=== PATIENT | male | born 1995 | race African-American/Black ===

== ENCOUNTER 2021-02-11 08:21 | Emergency (ER) | payer BC, SELFPAY ==
--- NOTE | ~2021-02-11 | XR_ITS ---
EXAMINATION: XR scapula RT DATE: 02/11/2021 10:26 INDICATION: Right scapula pain. TECHNIQUE: 2 views of right scapula were obtained. COMPARISON: None. FINDINGS: Bone alignment is normal. No fracture. Glenohumeral joint is normal. There is mild acromioc lavicular joint osteoarthritis. IMPRESSION: 1. Mild right acromioclavicular joint osteoarthritis. Reviewed, dictated and finalized at location B.
--- NOTE | ~2021-02-11 | XR_ITS ---
EXAMINATION: XR thoracic spine 3V DATE: 02/11/2021 10:26 INDICATION: Back pain. TECHNIQUE: 3 views of thoracic spine were obtained. COMPARISON: None. FINDINGS: There is 8 degrees dextrocurvature of thoracic spine. There is mild anterior wedging of T11 vertebral body, likely physiologic. Intervertebral disc heights are normal. IMPRESSION: 1. No specific etiology for the patient's symptoms. Reviewed, dictated and finalized at location B.
[2021-02-11 08:26] VITALS: BP 116/73; PULSE 67; RESP 15; TEMP 36.6; O2SAT 100
--- NOTE | 2021-02-11 09:01 | ED.BACK ---
HPI - Back Pain/Injury General Chief Complaint: Back Pain/Injury Stated Complaint: back pain Time Seen by Provider: 02/11/21 08:58 Source: patient Mode of arrival: ambulatory Limitations: no limitations History of Present Illness HPI Narrative: Patient is a 25 yo male who presents for evaluation of right back pain which began overnight. Pt was sitting watching television when the pain began. He has a history of back spasm per patient. Patient reports the pain is sharp in nature. He does report a job with heavy lifting daily; also states he carries a heavy back. Pt with pain such as this in the past that was diagnosed as muscle strain. Pain is exacerbated with movement of the right shoulder or bending. No lower back pain. Denies fever, chills or cough. He denies chest pain. No pleuritic pain. No frontal abdominal pain. No dysuria or hematuria. Related Data Allergies Allergy/AdvReac Type Severity Reaction Status Date / Time No Known Allergies Allergy Verified 02/11/21 08:28 Review of Systems Review of Systems: CONSTITUTIONAL: Denies fever, chills, or sweats. EYES: Denies visual changes, redness, or discharge. ENT: Denies rhinorrhea, congestion, sore throat, or otalgia. CARDIOVASCULAR: Denies chest pain, palpitations, or edema. RESPIRATORY: Denies cough or dyspnea. GASTROINTESTINAL: Denies abdominal pain, nausea, vomiting, or diarrhea. GENITOURINARY: Denies dysuria or hematuria. SKIN: Denies rash or itching. MUSCULOSKELETAL:Reports pain near to right shoulder blade NEUROLOGIC: Denies headache, numbness, or weakness. [facility] Social History Social History (Updated 02/11/21 @ 09:22 by Anya Sibley MD) Smoking status: Never smoker Alcohol intake: never Substance use: never Gender identity (if verbalized by the patient): Male Exam Narrative: GENERAL: Awake, alert, conversant HEAD: Normocephalic, atraumatic. EYES: PERRLA and EOMI. ENT: Nares clear, no rhinorrhea or epistaxis. Mucous membranes moist. NECK: Supple. CHEST: No respiratory distress, breathing even and non labored HEART: Regular rate, sinus rhythm ABDOMEN:Non distended, non tender Thorax: Right midthoracic back pain, tender to palpation at the medial border of the right scapula which reproduces pain, no mass no midline pain EXTREMITIES: Normal range of motion. No edema. Intact sensation over the deltoid. No squaring off of the shoulder. Pain with flexion of the right shoulder which reproduces pain. No crepitus. No erythema. Radial pulse 2+. Intact sensation median, ulnar, radial nerve distribution. SKIN: Warm, dry, no rash. NEURO:No focal deficits. Alert and oriented x3 Course Vital Signs Vital signs: Vital Signs Temperature 36.6 C 02/11/21 08:26 Pulse Rate 67 02/11/21 08:26 Respiratory Rate 15 02/11/21 08:26 Blood Pressure 116/73 02/11/21 08:26 Pulse Oximetry 100 02/11/21 08:26 Temperature 36.6 C 02/11/21 08:26 Pulse Rate 67 02/11/21 08:26 Respiratory Rate 15 02/11/21 08:26 Blood Pressure 116/73 02/11/21 08:26 Pulse Oximetry 100 02/11/21 08:26 MDM - Back Pain/Injury MDM Narrative Medical decision making narrative: Patient presenting for evaluation of right back pain. At the time of assessment, ABCs are intact and vital signs are stable. On exam, pain is reproducible in the mid thoracic posterior back, medial to the scapula. There is no bruising or mass. No deformity. Patient with intact range of motion although movement does exacerbate the pain. No midline thoracic pain. Imaging shows evidence of osteoarthritis, wedging at T11 which may be causing a type of radiculopathic pain given the patient's symptoms. No ripping or tearing sensation to the flank. No chest pain or shortness of breath. Based on the patient's symptoms and physical exam finding, most consistent musculoskeletal etiology and thoracic strain. Patient was advised to discontinue heavy lifting, take anti-inflammatories until
[2021-02-11] MEDS: KETOROLAC (*BKC) 60 MG/2 ML VIAL 30 MG IM (09:34)
--- NOTE | 2021-02-11 10:14 | PC.NURSE ---
Pt to xray.
== END 2021-02-11 11:06 | disposition home or self-care (01) ==
PROVIDERS: Emergency Provider Emergency Medicine
DX: S29.019A Strain of muscle and tendon of unspecified wall of thorax, initial encounter (principal); M19.011 Primary osteoarthritis, right shoulder; X50.9XXA Other and unspecified overexertion or strenuous movements or postures, initial encounter
CPT/HCPCS: 72072; 73010; 96372; 99283; J1885

== ENCOUNTER 2022-12-29 18:31 | Emergency (ER) | payer SELFPAY ==
--- NOTE | 2022-12-29 18:44 | ED.HA ---
HPI - Headache General Chief Complaint: Headache Stated Complaint: Headache Time Seen by Provider: 12/29/22 18:45 Source: patient Mode of arrival: ambulatory Limitations: no limitations History of Present Illness HPI Narrative: 27-year-old male presents today with complaint of migraine. Reports that he also is having photophobia today. Took Excedrin this morning with no relief of pain. Patient reports that he was diagnosed with migraines in 2018 by his primary care physician. States that his migraines at that time were diagnosed as asthma induced migraines . Patient states that he does not get them often but when he does get a migraine Excedrin helps treat the pain. He reports that he has been giving more frequent migraines over the past 2 weeks since flying on a plane. He currently does not have a primary care physician because he feels that he does not need 1 because he never gets sick . Patient is alert an oriented. No neuro deficits. Denies nausea vomiting. All systems reviewed and negative except as noted above. Related Data Home Medications Medication Instructions Recorded Confirmed albuterol 12/29/22 Allergies Allergy/AdvReac Type Severity Reaction Status Date / Time No Known Allergies Allergy Verified 12/29/22 18:32 Review of Systems Review of Systems: CONSTITUTIONAL: Denies fever, chills, or sweats. EYES: Denies visual changes, redness, or discharge. ENT: Denies rhinorrhea, congestion, sore throat, or otalgia. CARDIOVASCULAR: Denies chest pain, palpitations, or edema. RESPIRATORY: Denies cough or dyspnea. GASTROINTESTINAL: Denies abdominal pain, nausea, vomiting, or diarrhea. GENITOURINARY: Denies dysuria or hematuria. SKIN: Denies rash or itching. MUSCULOSKELETAL: Denies back pain, joint pain, or myalgia. NEUROLOGIC: Denies numbness, or weakness. Reports migraine headache. PSYCHIATRIC: Denies anxiety or depression. All other systems reviewed are negative, except as documented in HPI. [facility] Social History Social History (Updated 02/11/21 @ 09:22 by Anya Sibley MD) Smoking status: Never smoker Alcohol intake: never Substance use: never Gender identity (if verbalized by the patient): Male Comments At time of signature, agree with nursing past medical, surgical, social and family history. There is no relevant family history pertinent to the presenting complaint. Exam Narrative: GENERAL: This is a well-nourished, well-developed patient, in no apparent distress. HEAD: normocephalic, atraumatic. EYES: PERRL. Sclera clear/white. Vision is grossly intact. Extraocular motions intact. EARS: External ears normal, auditory canals clear and without drainage, TMs normal without perforation. Hearing grossly intact. NOSE: External nose normal with no obvious nasal discharge, nares without redness, no rhinorrhea. THROAT: Mucous membranes moist, posterior pharynx clear. NECK: Neck supple, non-tender without lymphadenopathy, masses or thyromegaly. CARDIOVASCULAR: Regular rate and rhythm without murmurs, gallops, or rubs. RESPIRATORY: Clear to auscultation. Breath sounds equal bilaterally. No wheezes, rales, or rhonchi. SKIN: warm, Dry, intact with no suspicious lesions or rash, good texture and turgor. NEURO: awake, alert, and oriented to person, place and time. There were no obvious focal neurologic abnormalities. EXTREMITIES: No joint tenderness, effusion, or edema noted. Course Course Level of Care: Express Care Visit Vital Signs Vital signs: reviewed MDM - Headache MDM Narrative Medical decision making narrative: Patient is aware of diagnosis, understands and agrees to treatment plan. Anticipatory guidance given. Patient agrees to follow-up as directed and is aware of reasons to seek care at the emergency department. Portions of this record may have been created with voice recognition software Discharge Plan Discharge Clinical Impression: Migraine
[2022-12-29] MEDS: ONDANSETRON HCL ODT 4 MG TABLET SUBLINGUAL (19:00)
[2022-12-29] MEDS: diphenhydrAMINE HCl CAP 25 MG CAPSULE 50 MG PO (19:00)
[2022-12-29] MEDS: KETOROLAC (*BKC) 60 MG/2 ML VIAL IM (19:02)
== END 2022-12-29 19:30 | disposition home or self-care (01) ==
PROVIDERS: Emergency Provider Nurse Practitioner Family
DX: G43.909 Migraine, unspecified, not intractable, without status migrainosus (principal); J45.909 Unspecified asthma, uncomplicated
CPT/HCPCS: 96372; 99213; A9270; G0463; J1885

== ENCOUNTER 2024-09-11 12:16 | Emergency (ER) | payer OTHER, SELFPAY ==
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
--- NOTE | ~2024-09-11 | XR_ITS ---
CHEST RADIOGRAPH, PA AND LATERAL CLINICAL HISTORY: upper back pain, pleuritic pain . COMPARISON: None available TECHNIQUE: PA and lateral views of the chest. FINDINGS The cardiomediastinal silhouette is unremarkable. The lungs are clear. Visualized osseous structures and soft tissues are unremarkable. IMPRESSION: No focal infiltrate or effusion. Reviewed, dictated and finalized at location A.
[2024-09-11 12:36] VITALS: BP 149/100; PULSE 66; RESP 16; TEMP 36.3; O2SAT 100
--- OUTSIDE RECORDS SUMMARY | 2024-09-11 13:45 | XMS_ITS | Continuity of Care Document ---
Author Name [facility] Organization [facility] Care Team Providers Care Shellac Polisher Name Role Phone [facility] Unavailable Unavailable Problems Combined list of problems from Department of Defense and Veterans Affairs facilities. It does not include entries that were removed or entered in error. Problem Status Onset Date Problem Type Date of Resolution Comme nts Source Asthma Active Condition [facility] [place] [facility] Immunizations Combined list of available immunizations from the Department of Defense and Veterans Affairs facilities. Immunization Series Date Given Administered By Site Reaction Lot Number CVX Code Drug Insole Tape Stitcher Uco Status Comments Source COVID Vaccine Moderna 2020 [id number] complet ed COVID Vaccine Moderna 06/16/21 Given Ambulat ory Pharmac y COVID Vaccine Moderna 2020 [id number] complet ed COVID Vaccine Moderna 05/19/21 Given Ambulat ory Pharmac y Influenza, inj, MDCK, quadrivalent- pf 2020 [id number] Seqirus complet ed Influenza , inj, MDCK, quadrival ent-pf 03/17/21 Given Ambulat ory Pharmac y anthrax vaccine 2019 [id number] Emergent Biosolutions complet ed anthrax vaccine 08/08/19 Given Ambulat ory Pharmac y yellow fever vaccine 2019 [id number] 37 sanofi pasteur complet ed yellow fever vaccine 07/02/19 Given Ambulat ory Pharmac y influenza, injectable, quadrivalent 2018 [id number] Seqirus complet ed influenza , injectabl e, quadrival ent 05/28/19 Given Ambulat ory Pharmac y typhoid Vi capsular polysaccharid e vac 2018 [id number] sanofi pasteur complet ed typhoid Vi capsular polysacch aride vac 02/18/19 Given Ambulat ory Pharmac y anthrax vaccine 2018 [id number] [employer]gent [employer] complet ed anthrax vaccine 02/18/19 Given Ambulat ory Pharmac y vaccinia (smallpox) vaccine 2018 [id number] Sanofi Pasteur Inc[employer] complet ed vaccinia (smallpox ) vaccine 02/18/19 Given Ambulat ory Pharmac y anthrax vaccine 2018 [id number] Emer[employer] complet ed anthrax vaccine 08/09/18 Given Ambulat ory Pharmac y influenza, injectable, quadrivalent- pf [id number] GlaxoSmithKli ne complet ed influenza , injectabl e, quadrival ent-pf 06/05/18 Given Ambulat ory Pharmac y hepatitis B adult vaccine 2016 zzRig Arm [id number] 43 GlaxoSmithKli ne complet ed hepatitis B adult vaccine 05/10/17 Given Ambulat ory Pharmac y influenza, injectable, quadrivalent- pf 2016 [id number] Seqirus complet ed influenza , injectabl e, quadrival ent-pf 03/29/17 Given Ambulat ory Pharmac y typhoid Vi capsular polysaccharid e vac [address] [id number] sanofi pasteur complet ed typhoid Vi capsular polysacch aride vac 01/03/17 Given Ambulat ory Pharmac y typhoid Vi capsular polysaccharid e vac 2016 [id number] sanofi pasteur complet ed typhoid Vi capsular polysacch aride vac 01/02/17 Given Ambulat ory Pharmac y hepatitis B adult vaccine 2016 [id number] GlaxoSmithKli ne complet ed hepatitis B adult vaccine 12/06/16 Given Ambulat ory Pharmac y poliovirus vaccine, inactivated 2016 [id number] 10 sanofi pasteur complet ed polioviru s vaccine, inactivat ed 10/21/16 Given Ambulat ory Pharmac y tetanus, diphtheria, acellular pertu is 2016 [id number] GlaxoSmithKli ne complet ed tetanus, diphtheri a, acellular pertussis 10/21/16 Given Ambulat ory Pharmac y meningococcal A,C,Y,W-135 (MCV4P) 2016 [id number] 114 sanofi pasteur complet ed meningoco ccal A,C,Y,W-1 35 (MCV4P) 10/21/16 Given Ambulat ory Pharmac y adenovirus vaccine, live 2016 [id number] Teva Pharmaceutica ls complet ed adenoviru s vaccine, live 10/21/16 Given Ambulat ory Pharmac y hepatitis B pediatric/ado lescent 2016 [id number] GlaxoSmithKli ne complet ed hepatitis B pediatric /adolesce nt 10/21/16 Given Ambulat ory Pharmac y influenza, injectable, quadrivalent- pf 2016 [id number] 150 GlaxoSmithKli ne complet ed influenza , injectabl e, quadrival ent-pf 10/21/16 Given Ambulat ory Pharmac y Results Combined list of recent chemistry, hematology and other laboratory results from Department of Defense and Veterans Affairs, ranging from 15 months to all on record, depending upon the facility. Order Name Results Value Reference Range Date Interpretation Specimen Comments Source Chemistry CK Total 186 U/L 30 - 200 12/02 N [facility] Eosinophil % Auto 12.2 % 0.8 - 7.0 12/02 H [facility] Neutrophil % Auto 41.7 % 34.0 - 67.9 12/02 N [facility] Edgar Absolute 0.51 10^3/u L 0.30 - 0.96035 12/02 N [facility] Imm. Granulocyte % 0.1 % 0.0 - 1.5 12/02 N [facility] Imm. Granulocyte Absolute 0.0 10^3/u L 0.0 - 0.2103 12/02 N [facility] Baso Absolute 0.04 10^3/u L 0.01 - 0.07277 12/02 N [facility] Eos Absolute 0.88 10^3/u L 0.04 - 0.42626 12/02 H [facility] Neutro Absolute 3.01 10^3/u L 1.78 - 5.68038 12/02 N [facility] Basophil % Auto 0.6 % 0.2 - 1.2 12/02 N [facility] Lymph Absolute 2.76 10^3/u L 1.32 - 3.18630 12/02 N [facility] Monocyte % Auto 7.1 % 5.3 - 12.2 12/02 N [facility] Lymphocyte % Auto 38.3 % 21.8 - 53.1 12/02 N [facility] AST 18 U/L 5 - 34 12/02 N [facility] ALT 12.00 U/L 6.00 - 55.00 12/02 N [facility] Sodium 139.0 mmol/L 136.0 - 145.0 12/02 N [facility] Alk Phos 52 U/L 40 - 150 12/02 N [facility] Potassium Lvl 3.9 mmol/L 3.5 - 5.1 12/02 N [facility] Protein Total 8.3 g/dL 5.8 - 8.3 12/02 N [facility] Chloride 107 mmol/L 98 - 107 12/02 N [facility] Albumin 4.8 g/dL 3.5 - 4.8 12/02 N [facility] CO2 23 mmol/L 22 - 32 12/02 N [facility] Glucose Lvl 85 mg/dL 70 - 99 12/02 N [facility] BUN 13.0 mg/dL 8.9 - 20.6 12/02 N [facility] Creatinine Level 1.2 mg/dL 0.7 - 1.2 12/02 N [facility] Calcium 9.8 mg/dL 8.4 - 10.2 12/02 N [facility] Bilirubin Total 0.3 mg/dL 0.2 - 1.2 12/02 N [facility] Phosphorus 2.3 mg/dL 2.3 - 4.7 12/02 N [facility] WBC 7.21 10^3/u L 4.23 - 9.55324 12/02 N [facility] MPV 10.3 fL 9.4 - 12.4 12/02 N [facility] MCV 87.6 fL 79.0 - 92.2 12/02 N [facility] RBC 4.43 10^6/u L 4.63 - 6.44772 12/02 L [facility] Platelets 323 10^3/u L 163 - 189919 12/02 N [facility] Hematocrit 38.8 % 40.1 - 51.0 12/02 L [facility] MCHC 34.0 g/dL 32.3 - 36.5 12/02 N [facility] RDW CV 12.4 % 11.6 - 14.4 12/02 N [facility] MCH 29.8 pg 25.7 - 32.2 12/02 N [facility] Hemoglobin 13.2 g/dL 13.7 - 17.5 12/02 L [facility] Magnesium Lvl 2.05 mg/dL 1.70 - 2.60 12/02 N [facility] eGFR CKD EPI 86 mL/min /1.73_ m2 12/02 L Interpretive Data: Estimated Glomerular Filtration Rate (eGFR) calculated using the 2020 Chronic Kidney Disease-Epid emiology (CKD-EPI) Collaboratio n creatinine equation; units of measure are mL/min/1.73 m2. Results are only valid for adults ( 18 years) whose serum creatinine is in steady state. eGFR calculations are not valid for patients with acute kidney injury and for patients on dialysis. C reatinine-ba sed estimates of kidney function may also be inaccurate in patients with reduced creatinine generation due to decreased muscle mass (e.g., malnutrition , severe hypoalbumine acacia, sarcopenia, chronic neuromuscula r disease, amputations, severe heart failure or liver disease) and in patients with increased creatinine generation due to increased muscle mass (e.g., muscle builders, anabolic steroids) or increased dietary intake. As drug clearance is proportional to total GFR and not GFR indexed to body surface area (BSA), in individuals with a BSA substantiall y different than 1.73 m2, drug dosing should be based the reported eGFRvalue de-indexed from BSA by multiplying by the individual s BSA and dividing by 1.73. CKD is diagnosed based on abnormalitie s of kidney structure or function, present for >3 months, with implications for health and disease. CKD is classified and staged based on cause, eGFR and albuminuria (quantified as urine albumin to creatinine ratio). An eGFR >60 mL/min/1.73 m2 in the absence of increased urine albumin excretion or structural abnormalitie s does not represent CKD.eGFR (mL/min/1.73 m2) CKD stage Interpretati on 90 G1 Normal 60-89 G2 Mild decrease 45-59 G3A Mild to moderate decrease 30-44 G3B Moderate to severe decrease 15-29 G4 Severe decrease <15 G5 Kidney failure [facility] Chemistry POC Glucose 81 mg/dL 74 - 118 12/02 N [facility] Vital Signs Combined list of inpatient and outpatient Vital Signs from Department of Defense and Veterans Affairs, ranging from 12 months to all on record, depending upon the facility. Vital Sign Value Date Comments Source Temperature Tympanic 36.6 Terri 12/02/2022 23:56:00 [facility] Mean Arterial Pressure, Calc 99 mm[Hg] 12/02/2022 23:56:00 [facility] Respiratory Rate 16 br/min 12/02/2022 23:56:00 [facility] Heart Rate Monitored 77 bpm 12/02/2022 23:56:00 [facility] Systolic Blood Pressure 135 mm[Hg] 12/03/19 23 23:56:00 [facility] Diastolic Blood Pressure 81 mm[Hg] 023 23:56:00 [facility] Heart Rate Monitored 72 bpm 12/02/2022 23:30:00 [facility] Systolic Blood Pressure 135 mm[Hg] 12/03/19 23 23:30:00 [facility] Diastolic Blood Pressure 81 mm[Hg] 023 23:30:00 [facility] Respiratory Rate 18 br/min 12/02/2022 23:30:00 [facility] Mean Arterial Pressure, Calc 99 mm[Hg] 12/02/2022 23:30:00 [facility] Temperature Oral 37.2 Terri 12/11/2021 21:39:00 [facility] Systolic Blood Pressure 140 mm[Hg] 12/12/19 22 21:39:00 [facility] Diastolic Blood Pressure 84 mm[Hg] 022 21:39:00 [facility] Peripheral Pulse Rate 64 bpm 12/11/2021 21:39:00 [facility] Respiratory Rate 15 br/min 12/11/2021 21:39:00 [facility] Systolic Blood Pressure 134 mm[Hg] 12/04/19 23 01:09:00 [facility] Diastolic Blood Pressure 84 mm[Hg] 023 01:09:00 [facility] Respiratory Rate 18 br/min 12/03/2022 01:09:00 [facility] Mean Arterial Pressure, Calc 101 mm[Hg] 12/03/2022 01:09:00 [facility] Heart Rate Monitored 72 bpm 12/03/2022 01:09:00 [facility] Temperature Tympanic 36.6 Terri 12/02/2022 23:20:00 [facility] Respiratory Rate 18 br/min 12/02/2022 23:20:00 [facility] Peripheral Pulse Rate 70 bpm 12/02/2022 23:20:00 [facility] Systolic Blood Pressure 137 mm[Hg] 12/03/19 23 23:20:00 [facility] Diastolic Blood Pressure 84 mm[Hg] 023 23:20:00 [facility] Procedures Combined list of: 1) Procedures from Department of Veterans Affairs facilities going back up to thelast 18 months, not all [place] non-surgical procedures are included; 2) All procedures from the Department of Defense facilities. Procedure Procedure Type Code Date Perfomer Comments Sourc e No data available for this section Ambulatory P harmacy Social History Combined list of available smoking, tobacco, and other social history from Department of Defense and Veterans Affairs facilities. Social History Type Response Date Comment Sourc e Tobacco Never-cigarette user Cigarette use:. Never-other tobacco user (not cigarettes) Other Tobacco use:. Ambulatory Pharmacy Sexual Orientation Ambula tory Pharmacy Gender identity Ambulator y Pharmacy Sex Representation Male Unknow n Organization Assessment and Plan Combined list of future care activities from Department of Defense and Veterans Affairs facilities (e.g., assessment and plan notes, appointments, orders, and referrals). Additional future care activities may be listed in the Plan of Care section. Result Assessment and Plan Date Source Assessment and Plan No data available for this section 09/11/2024 Ambulatory Pharmacy Functional Status Combined list of recent functional and cognitive assessments recorded at [facility] and [facility] Functional Buchanan Measurement (FIM) Scale: 1 = Total Assistance (Subject = 0% +), 2 = Maximal Assistance (Subject = 25% +), 3 = Moderate Assistance (Subject = 50% +), 4 = Minimal Assistance (Subject = 75% +), 5 = Supervision, 6 = Modified Buchanan (Device), 7 = Complete Buchanan (Timely, Safely). Assessment Date/Time Source Assessment Type Assessment Skill Assessment Score Assessment Details No data available for this section
--- OUTSIDE RECORDS SUMMARY | 2024-09-11 13:45 | XMS_ITS | Referral Summary ---
Author Organization [facility] Address [address] [place] [address] Care Team Providers Care Cocoa Mill Operator Name Role Phone Karine Knox NP Primary Care Provider [phone] Allergies No known active allergies Medications SUMAtriptan (IMITREX) 50 mg tabletIndication s:Migraine Take 1 tablet (50 mg total) by mouth once as needed for migraine May repeat after 2 hours. 27 tablet 4 4 03/07/20 25 Active topiramate (TOPAMAX) 25 mg tabletIndication s:Chronic migraine with aura and with status migrainosus, not intractable Take 1 tablet (25 mg total) by mouth 2 (two) times a day 60 tablet 11 4 05/13/20 25 Active Active Problems Problem Noted Date Diagnosed Date Unintentional weight loss 03/07/2024 Pain of ulnar side of wrist 03/01/2024 Asthma 10/10/2023 Assessment & Plan (10/10/2023 1:16 PM CDT): HPI: Condition is stable. Patient has had childhood asthma that has not had any recent flares. Patient states he has albuterol inhaler at home but does not need to use it. A&P: We will send in air supra to replace albuterol inhaler as rescue medication. Please consider the albuterol as a rescue only medication. If needing the albuterol more than 2xwk (with the exception if you are using it pre-exercise), please contact office. Current guidelines are also to give a steroid inhaler short term if you are having an asthma flare. Please reach out to our office and we will send this in for you. Please note, when using steroid inhaler, you will need to rinse your mouth well after use to avoid thrush (yeast infection of the mouth). Chronic migraine with aura a nd with status migrainosus, not intractable 10/10/2023 Assessment & Plan (05/13/2024 5:07 PM SAMPLER OVENS): HPI: Condition is not at/near goal. 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 At last appointment on 10/10/2023, patient reported 3-4 migraines per week for the past 7 years since being in the [employer]. He reported marijuana use was the only thing that was helpful. Did trial on Imitrex which patient states actually made migraines worse. A&P: Will start on Topiramate 25 mg once daily x1 week and then increase to 50 mg daily thereafter. Will try Nurtec for abortive therapy. Assessment & Plan (03/07/2024 3:01 PM CDT): HPI: Condition is not at/near goal. 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 At last appointment on 10/10/2023, patient reported 3-4 migraines per week for the past 7 years since being in the [employer]. He reported marijuana use was the only thing that was helpful. A&P: Trial on Imitrex 50 mg as needed for migraines. Will follow up in 8 weeks via telemedicine. Assessment & Plan (11/06/2023 12:02 PM CDT): HPI: Condition is not at/near goal. 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 At last appointment on 10/10/2023, patient reported 3-4 migraines per week for the past 7 years since being in the [employer]. He reported marijuana use was the only thing that was helpful. We trialed him on Imitrex 50 mg as needed for migraines and made plans to follow up in 1 month. Today, patient reports that he was never able to start any of his medication due to losing his insurance. A&P: Discussed following up after patient gets back on his insurance. Assessment & Plan (10/10/2023 1:17 PM CDT): HPI: Condition is not at/near goal. Patient states that he has had 3-4 migraines per week for the past 7 years since he has been in the [employer]. Patient states that he is tried Tylenol and Motrin in the past without relief. Patient does state that marijuana is really the only thing that helps. A&P: Discussed/ordered labs. We will trial patient on Imitrex 50 mg as needed for migraines. Discussed avoiding all caffeine: no soda, tea, coffee, chocolate; no wine; no sharp cheeses; no processed meats like hot dogs or bologna; no MSG as found in georgian food; no more than 1/2 banana a day; no artificial sweeteners; fresh bread (less than 24 hours old). Avoid using tylenol, ibuprofen or aleve more than twice a week or else you can cause medication overuse/rebound headaches. You may be causing the headaches with the medications you are taking to get rid of them. Be sure to push lots of water as dehydration is a big cause of headaches. PTSD (post-traumatic stress disorder) 10/10/2023 Assessment & Plan (11/06/2023 12:01 PM CDT): HPI: Condition is not at/near goal. 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 At last appointment on 10/10/2023, patient had reported feeling depressed and felt like he had possible symptoms of PTSD from his time in active duty. We started patient on Wellbutrin 150 mg daily, send resources for counseling, and made plans to follow up in 1 month. Today, patient reports that he was never able to start any of his medication due to losing his insurance. A&P: Discussed following up after patient gets back on his insurance. Assessment & Plan (10/10/2023 1:18 PM CDT): HPI: Condition is not at/near goal. 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 Patient states that he has recently been feeling depressed and symptoms of possible PTSD from active duty time. A&P: Discussed/ordered labs. Will trial patient on Wellbutrin 150 mg daily. We will send resources for counseling options for patient. We will follow up via telemedicine in 1 month. Closed fracture of right distal radius 4 Immunizations Immunization Administration Dates Next Due Influenza, Unspecified 04/26/2024,02/24/2023 Social History Tobacco Use Types Packs/Day Years Used Date Smoking Tobacco: Never Smokeless Tobacco: Never Tobacco Cessation:Counseling Given: Not Answered AUDIT-C Answer Date Recorded Q1: How often do you have a drink containing alcohol? Never 05/13/2024 Q2: How many drinks containi ng alcohol do you have on a typical day when you are drinking? Patient does not drink Q3: How often do you have si x or more drinks on one occasion? Never 05/13/2024 PHQ-2 Answer Date Recorded PHQ-2 Total Score (If total score is 3 or more points, staff should administer the PHQ-9) 0 03/07/2024 Personal Safety Answer Date Recorded Have you ever been in or are you currently in a harmful physical or emotional relationship or is someone making you feel afraid or unsafe? Denies 09/12/2023 Sex and Gender Information Value Date Recorded Sex Assigned at Not on file Legal Sex Male 9:41 PM SAMPLER OVENS Gender Identity Not on file Sexual Orientation Not on file Last Filed Vital Signs Vital Sign Reading Time Taken Comments Blood Pressure 100/68 03/07/2024 1:04 PM CDT Pulse 58 03/07/2024 1:04 PM CDT Temperature 36.7 C (98.1 F) 10/10/2023 10:05 AM CDT Respiratory Rate 16 03/07/2024 1:04 PM CDT Oxygen Saturation 99% 03/07/2024 1:04 PM CDT Inhaled Oxygen Concentration - - Weight 76.7 kg (169 lb) 05/13/2024 1:23 PM SAMPLER OVENS P er pt Height 188 cm (6' 2.02 ) 05/13/2024 1:23 PM SAMPLER OVENS Body Mass Index 21.69 05/13/2024 1:23 PM SAMPLER OVENS Plan of Treatment Not on file Medical Devices Implanted Type Area Electrical Cad Technician Device Identifier Shelf Expiration Date Model / Serial / Lot [employer] Danica .062in 9in 2 Trocar Wire Fixation 1600-962 - [id number] Implanted:Qty: 1 on 09/12/2023 by Breanne Abdalla MD at [facility] Right: Wrist [employer] [id number] 03/31/2027 5599-813 / / [id number] Procedures Procedure Name Priority Date/Time Associated Diagnosis Comments HEPATITIS C ANTIBODY Routine 10/18/2023 9:38 AM CDT Encounter for hepatitis C screening test for low risk patient from Last 3 Months or Most Recently Relevant to Health Maintenance Results * Hepatitis C antibody Blood (10/18/2023 9:38 AM CDT) Hep C Ab Nonreactive Nonreactive Comment: Antibodies to HCV not detected. Does NOT exclude the possibility of recent exposure to HCV. Current interpretive data was last revised on 22 Interpretive Data Nonreactive: Antibodies to HCV not detected. Does NOT exclude the possibility of recent exposure to HCV. Equivocal: Equivocal for HCV antibodies. Supplemental molecular testing will be automatically performed to determine infection status in accordance with current CDC screening recommendations. Reactive: Positive for HCV antibodies. This may represent current or past HCV infection. Supplemental molecular testing will be automatically performed to determine current infection status in accordance with current CDC screening recommendations. Interpretive data was last revised on 2019. Blood 10/18/2023 9:38 AM CDT 10/18/2023 12:37 PM CDT Karine Knox NP LAB MICROBIOLOGY - GENERAL OR DERABLES Final Result [facility] [id number] [facility] Department [place] [address] from Last 3 Months or Most Recently Relevant to Health Maintenance Insurance [facility] [place] [address] [facility] [employer] [facility] Care Teams Cocoa Mill Operator Relationship Specialty Start Date End Date Karine Knox MECHANICAL ENGINEERING DRAFTSPERSON [address] [facility] [place] [id number] PCP - General Family Medicine 10/10/23
--- OUTSIDE RECORDS SUMMARY | 2024-09-11 13:45 | XMS_ITS | Clinical Summary ---
Author Organization [facility] Address [address] [place] [address] Care Team Providers Care Keno Clerk Name Role Phone Karine Knox NP Primary Care Provider [phone] Allergies No known active allergies Medications SUMAtriptan [...] 10/10/2023 Assessment & Plan (05/13/2024 5:07 PM HOME HEALTH CLINICAL SUPERVISOR): HPI: Condition is not at/near goal. Patient [...] or bologna; no MSG as found in albanian food; no more than 1/2 banana a [...] Administration Dates Next Due Influenza, Unspecified 04/26/2024,02/24/2023 Surgical History Surgery Date Site/Laterality Comments WRIST SURGERY Right Family History Relation Name Status Comments Father Alive Mother Alive Social History Tobacco Use Types Packs/Day Years [...] on file Legal Sex Male 9:41 PM HOME HEALTH CLINICAL SUPERVISOR Gender Identity Not on file Sexual Orientation Not on file Obstetrics History Last Filed Vital Signs Vital Sign Reading Time Taken Comments Blood Pressure 100/68 03/07/2024 1:04 PM CDT Pulse 58 03/07/2024 1:04 PM CDT Temperature 36.7 C (98.1 F) 10/10/2023 10:05 AM CDT Respiratory Rate 16 03/07/2024 1:04 PM CDT Oxygen Saturation 99% 03/07/2024 1:04 PM CDT Inhaled Oxygen Concentration - - Weight 76.7 kg (169 lb) 05/13/2024 1:23 PM HOME HEALTH CLINICAL SUPERVISOR P er pt Height 188 cm (6' 2.02 ) 05/13/2024 1:23 PM HOME HEALTH CLINICAL SUPERVISOR Body Mass Index 21.69 05/13/2024 1:23 PM HOME HEALTH CLINICAL SUPERVISOR Plan of Treatment Health Maintenance Due Date Last Done Comments Varicella Vaccines (1 of 2 - 13+ 2-dose series) 2009 Pneumococcal vaccine <65 (1 of 2 - PCV) 10/23/2015 Covid-19 Vaccine (3 - season) 2024 06/16/2021, 05/19/2021 Depression Screening 03/07/2025 03/07/2024, 10/10/2023, 10/10/2023 Regular Well Visit/Exam 18-64 03/07/2025 03/07/2024 DTaP/Tdap/Td Vaccine (2 - Td or Tdap) 10/21/2026 10/21/2016 Hepatitis B Screening Completed 05/10/2017 , 12/06/2016, 10/21/2016 Hepatitis C Screening Completed 10/18/2023 Influenza Vaccine Completed 04/26/2024, , 03/05/2022, Additional history exists HPV Vaccines Aged Out No longer eligi ble based on patient's age to complete this topic Medical Devices Implanted Type Area Sales Representative Trainee Device Identifier Shelf Expiration Date Model / Serial / Lot [employer] Danica .062in 9in 2 Trocar Wire Fixation 1600-962 - [id number] Implanted:Qty: 1 on 09/12/2023 by Breanne Abdalla MD at [facility] Right: Wrist [employer] [id number] 03/31/2027 1600-962 / / [id number] 2 Procedures Procedure Name Priority Date/Time Associated [...] MICROBIOLOGY - GENERAL OR DERABLES Final Result Performing Organization Address City/State/[facility] Co ar Phone Number JEAN PIERRE [address] [facility] Department [place] [address] from Last 3 Months or Most Recently Relevant to [place] [address] [employer] [place] [address] [employer] ACC[employer] CHO[employer] Care Teams Keno Clerk Relationship Specialty Start Date End Date Karine Knox NP [address] [place] [place] [id number] PCP - General Family Medicine 10/10/23
--- NOTE | 2024-09-11 14:40 | ED_ITS ---
HPI - Back Pain/Injury General Chief Complaint: Back Pain/Injury <Andra Montemayor PA-C - Last Filed: 09/11/24 14:42> Stated Complaint: neck/back pain <Andra Montemayor PA-C - Last Filed: 09/11/24 14:42> Time Seen by Provider: 09/11/24 14:40 <Andra Montemayor PA-C - Last Filed: 09/11/24 14:42> Focused HPI: Patient is a 28-year-old male who presents the ED with report of upper back pain. 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 Present just off his spine and next to his shoulder blade. Reported having some tingling in his left arm at that time which has since resolved. Patient denies any heavy lifting or strenuous activity. States he felt fine when he woke up this morning. He is still having the pain. Worse with movement. Has not taken anything for pain. Denies chest pain or shortness of breath. GENERAL: Well-appearing, well-nourished, and in no acute distress. HEAD: Normocephalic, atraumatic. CHEST: Clear to auscultation. ?No respiratory distress. HEART: Regular rate and rhythm.? MSK: TTP in L medial scapular region. No significant midline thoracic spine tenderness. No palpable bony deformities. NEURO: ?Alert and oriented x3. Patient screened in triage and initial orders placed.? ?Additional care and disposition to be based upon?diagnostic testing and treatment. <Andra Montemayor PA-C - Last Filed: 09/11/24 14:42> Source: patient <Andra Montemayor PA-C - Last Filed: 09/11/24 14:42> Mode of arrival: ambulatory <Andra Montemayor PA-C - Last Filed: 09/11/24 14:42> Limitations: no limitations <Andra Montemayor PA-C - Last Filed: 09/11/24 14:42> History of Present Illness HPI Narrative: I agree with the above HPI <Glynn Carr MD - Last Filed: 09/11/24 21:21> Related Data Home Medications: Home Medications ?Medication ?Instructions ?Recorded ?Confirmed ?Last Taken ?Type albuterol 12/29/22 Unknown History <Andra Montemayor PA-C - Last Filed: 09/11/24 14:42> Allergies/Adverse Reactions: Allergies Allergy/AdvReac Type Severity Reaction Status Date / Time No Known Allergies Allergy Verified 12/29/22 18:32 <Andra Montemayor PA-C - Last Filed: 09/11/24 14:42> Review of Systems Review of Systems: All systems reviewed & are unremarkable except as noted in HPI and below <Glynn Carr MD - Last Filed: 09/11/24 21:21> [facility] Social History Social History: Social History (Updated 02/11/21 @ 09:22 by Anya Sibley MD) Smoking status: Never smoker Alcohol intake: never Substance use: never Gender identity (if verbalized by the patient): Male <Andra Montemayor PA-C - Last Filed: 09/11/24 14:42> Exam Narrative: APPEARANCE: Well appearing, no pain, no distress, well-nourished. HEAD: normocephalic, atraumatic. EYES: PERRLA/EOMI, conjunctivae clear. NOSE: Normal no drainage EARS:TMS clear with good light reflex. THROAT: Pharynx clear, no exudate. NECK: Supple. No adenopathy, no masses. RESPIRATORY: Airway patent, respirations nonlabored. Clear to auscultation bi laterally, no rales, rhonchi, wheezing. CARDIOVASCULAR: Regular rate and rhythm without murmurs rubs or gallops. ABDOMINAL: Soft, nontender, nondistended, normal bowel sounds MUSCULOSKELETAL: Tenderness to left scapula muscular trigger NEURO: Alert. Cranial nerves II through XII intact. Good gait. Good coordination SKIN: Warm, dry. Normal Color <Glynn Carr MD - Last Filed: 09/11/24 21:21> Course Vital Signs Vital signs: Vital Signs Temperature 97.3 F L 09/11/24 12:36 Pulse Rate 66 09/11/24 12:36 Respiratory Rate 16 09/11/24 12:36 Blood Pressure 149/100 H 09/11/24 12:36 Pulse Oximetry 100 09/11/24 12:36 Temperature 97.8 F 09/11/24 18:33 Pulse Rate 50 L 09/11/24 18:33 Respiratory Rate 16 09/11/24 18:33 Blood Pressure 133/90 09/11/24 18:33 Pulse Oximetry 100 09/11/24 18:33 <Andra Montemayor PA-C - Last Filed: 09/11/24 14:42> Vital Signs Temperature 97.3 F L 09/11/24 12:36 Pulse Rate 66 09/11/24 12:36 Respiratory Rate 16 09/11/24 12:36 Blood Pressure 149/100 H 09/11/24 12:36 Pulse Oximetry 100 09/11/24 12:36 Temperature 97.8 F 09/11/24 18:33 Pulse Rate 50 L 09/11/24 18:33 Respiratory Rate 16 09/11/24 18:33 Blood Pressure 133/90 09/11/24 18:33 Pulse Oximetry 100 09/11/24 18:33 <Glynn Carr MD - Last Filed: 09/11/24 21:21> MDM - Back Pain/Injury MDM Narrative Medical decision making narrative: MSE by TALI in triage. <Andra Montemayor PA-C - Last Filed: 09/11/24 14:42> MSE by TALI in triage. 28-year-old male present to the emergency department for evaluation for left shoulder pain. Patient describes a left-sided muscular shoulder pain just medial to his scapula. Patient states pain was worsened with movement of the left arm. Chest x-ray was negative. Thoracic spine x-ray showed no acute abnormality. Patient did feel improved with anti-inflammatories and with Flexeril. Patient will be provided these medications for home. Patient was also advised to limit lifting anything heavy for the next 1-2 days. Patient was comfortable with plan for discharge and close follow-up <Glynn Carr MD - Last Filed: 09/11/24 21:21> Differential Diagnosis Differential diagnosis: Likely other (Back pain, scapular injury, muscular strain, pneumonia, pneumothorax) <Glynn Carr MD - Last Filed: 09/11/24 21:21> Imaging Data Radiologist's impression: Impressions Chest X-Ray 09/11/24 15:12 IMPRESSION: No focal infiltrate or effusion. Thoracic Spine X-Ray 09/11/24 15:12 IMPRESSION: No acute osseous abnormality of the thoracic spine. <Glynn Carr MD - Last Filed: 09/11/24 21:21> Discharge Plan Discharge Clinical Impression: Muscle strain of left scapular region <Andra Montemayor PA-C - Last Filed: 09/11/24 14:42> Patient Disposition: Home, Self-Care <Andra Montemayor PA-C - Last Filed: 09/11/24 14:42> Condition: Stable <Andra Montemayor PA-C - Last Filed: 09/11/24 14:42> Instructions: Antibiotic Form, Back Pain (ED) <Andra Montemayor PA-C - Last Filed: 09/11/24 14:42> Additional Instructions: Scheduled ibuprofen for pain control for the next 3-5 days. Flexeril as needed for muscle spasm. Avoid heavy lifting for the next 3-5 days. Tylenol as needed for additional pain control. Have close follow-up with your primary care physician. If you have any worsening symptoms and please call or return to the emergency department. <Andra Montemayor PA-C - Last Filed: 09/11/24 14:42> Patient Language: Faroese <Andra Montemayor PA-C - Last Filed: 09/11/24 14:42> Prescriptions: New cyclobenzaprine 10 mg tablet 10 mg PO BID PRN (Reason: muscle spasm) Qty: 14 0RF No Action albuterol <Andra Montemayor PA-C - Last Filed: 09/11/24 14:42> Follow-up/Referrals: PHYSICIAN NOT ON STAFF,NONSTAFF [Non-Staff] - <DAMIAN Fields Last Filed: 09/11/24 14:42>
[2024-09-11] MEDS: KETOROLAC (*BKC) 60 MG/2 ML VIAL IM (15:00)
[2024-09-11] MEDS: CYCLOBENZAPRINE HCL 5 MG TABLET PO (15:00)
[2024-09-11] MEDS: HYDROcodone/acetaminophen (*CRX) 5-325 MG TABLET 1 TAB PO (15:00)
[2024-09-11 15:02] VITALS: PULSE 58; RESP 16; O2SAT 100
[2024-09-11 15:04] VITALS: BP 141/89; PULSE 58; TEMP 36.2; O2SAT 100
--- OUTSIDE RECORDS SUMMARY | 2024-09-11 17:25 | XMS_ITS | Referral Summary ---
Author Organization [facility] Address [address] [place] [address] Care Team Providers Care Dough Mixer Helper Name Role Phone Karine Knox NP Primary Care Provider [phone] Allergies No known active allergies Medications SUMAtriptan [...] 10/10/2023 Assessment & Plan (05/13/2024 5:07 PM TELECOMMUNICATIONS LINE MECHANIC): HPI: Condition is not at/near goal. Patient [...] or bologna; no MSG as found in lao food; no more than 1/2 banana a [...] on file Legal Sex Male 9:41 PM TELECOMMUNICATIONS LINE MECHANIC Gender Identity Not on file Sexual Orientation [...] 76.7 kg (169 lb) 05/13/2024 1:23 PM TELECOMMUNICATIONS LINE MECHANIC P er pt Height 188 cm (6' 2.02 ) 05/13/2024 1:23 PM TELECOMMUNICATIONS LINE MECHANIC Body Mass Index 21.69 05/13/2024 1:23 PM TELECOMMUNICATIONS LINE MECHANIC Plan of Treatment Not on file Medical Devices Implanted Type Area Crib Pad Maker Device Identifier Shelf Expiration Date Model / Serial / Lot [employer] Danica .062in 9in 2 Trocar Wire Fixation 1600-962 - [id number] Implanted:Qty: 1 on 09/12/2023 by Breanne Abdalla MD at [facility] Right: Wrist [employer] [id number] 03/31/2027 2551-186 / / [id number] Procedures Procedure Name Priority Date/Time Associated [...] MICROBIOLOGY - GENERAL OR DERABLES Final Result [facility] [address] [facility] Department [place] [address] from Last 3 Months or Most Recently Relevant to Health Maintenance Insurance [facility] [address] [facility] Care Teams Dough Mixer Helper Relationship Specialty Start Date End Date Karine Knox COCOA ROASTER [address] [place] [phone] PCP - General Family Medicine 10/10/23
--- OUTSIDE RECORDS SUMMARY | 2024-09-11 17:25 | XMS_ITS | Clinical Summary ---
Author Organization [facility] Address [address] [place] [address] Care Team Providers Care Chemical Waste Management Technician Name Role Phone Karine Knox NP Primary Care Provider [phone] Allergies No known active allergies Medications SUMAtriptan [...] 10/10/2023 Assessment & Plan (05/13/2024 5:07 PM PERSONAL LINES ACCOUNT MANAGER): HPI: Condition is not at/near goal. Patient [...] or bologna; no MSG as found in maori food; no more than 1/2 banana a [...] on file Legal Sex Male 9:41 PM PERSONAL LINES ACCOUNT MANAGER Gender Identity Not on file Sexual Orientation [...] 76.7 kg (169 lb) 05/13/2024 1:23 PM PERSONAL LINES ACCOUNT MANAGER P er pt Height 188 cm (6' 2.02 ) 05/13/2024 1:23 PM PERSONAL LINES ACCOUNT MANAGER Body Mass Index 21.69 05/13/2024 1:23 PM PERSONAL LINES ACCOUNT MANAGER Plan of Treatment Health Maintenance Due Date [...] this topic Medical Devices Implanted Type Area Weather Algorithm Scientist Device Identifier Shelf Expiration Date Model / Serial / Lot [employer] Danica .062in 9in 2 Trocar Wire Fixation 1600-962 - [id number] Implanted:Qty: 1 on 09/12/2023 by Breanne Abdalla MD at [facility] Right: Wrist [employer] [id number] 03/31/2027 1600-962 / / [id number] 2 Procedures Procedure Name Priority Date/Time Associated [...] OR DERABLES Final Result Performing Organization Address City/State/[facility] Co mo Phone Number JEAN PIERRE [address] [facility] Department [place] [address] from Last 3 Months or Most Recently Relevant to [place] [address] [place] [address] [employer] ACCESS CHOICE Care Teams Chemical Waste Management Technician Relationship Specialty Start Date End Date Karine Knox NP [address] [address] [place] [id number] PCP - General Family Medicine 10/10/23
--- OUTSIDE RECORDS SUMMARY | 2024-09-11 17:25 | XMS_ITS | Continuity of Care Document ---
Author Name [facility] Organization [facility] Care Team Providers Care Recycling Collections Driver Name Role Phone [facility] Unavailable Unavailable Problems Combined list of problems from Department of Defense and Veterans Affairs facilities. It does not include entries that were removed or entered in error. Problem Status Onset Date Problem Type Date of Resolution Comme nts Source Asthma Active [place] [facility] Immunizations Combined list of available immunizations from the Department of Defense and Veterans Affairs facilities. 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 Status Comments Source COVID Vaccine Moderna 2020 [id number] complet ed COVID Vaccine Moderna 06/16/21 Given Ambulat ory Pharmac y COVID Vaccine Moderna 2020 [id number] complet ed COVID Vaccine Moderna 05/19/21 Given Ambulat ory Pharmac y Influenza, inj, MDCK, quadrivalent- pf 2020 [id number] Seqirus complet ed Influenza , inj, MDCK, quadrival ent-pf 03/17/21 Given Ambulat ory Pharmac y anthrax vaccine 2019 [id number] [employer] complet ed anthrax vaccine 08/08/19 Given Ambulat ory Pharmac y yellow fever vaccine 2019 [id number] sanofi pasteur complet ed yellow fever vaccine 07/02/19 Given Ambulat ory Pharmac y influenza, injectable, quadrivalent 2018 [id number] Seqirus complet ed influenza , injectabl e, quadrival ent 05/28/19 Given Ambulat ory Pharmac y typhoid Vi capsular polysaccharid e vac 2018 [id number] sanofi pasteur complet ed typhoid Vi capsular polysacch aride vac 02/18/19 Given Ambulat ory Pharmac y anthrax vaccine 2018 [id number] [employer] complet ed anthrax vaccine 02/18/19 Given Ambulat ory Pharmac y vaccinia (smallpox) vaccine 2018 [id number] Sanofi P[employer] complet ed vaccinia (smallpox ) vaccine 02/18/19 Given Ambulat ory Pharmac y anthrax vaccine 2018 [id number] [employer] complet ed anthrax vaccine 08/09/18 Given Ambulat ory Pharmac y influenza, injectable, [facility]rivalent- p[id number] GlaxoSmithKli ne complet ed influenza , injectabl e, quadrival ent-pf 06/05/18 Given Ambulat ory Pharmac y hepatitis B adult vaccine 2016 zzRig Arm [id number] 43 GlaxoSmithKli ne complet ed hepatitis B adult vaccine 05/10/17 Given Ambulat ory Pharmac y influenza, injectable, quadrivalent- pf 2016 [id number] Seqirus complet ed influenza , injectabl e, quadrival ent-pf 03/29/17 Given Ambulat ory Pharmac y typhoid [id number] sanofi pasteur complet ed typhoid Vi capsular polysacch aride vac 01/03/17 Given Ambulat ory Pharmac y typhoid Vi capsular polysaccharid e vac 2016 [id number] sanofi pasteur complet ed typhoid Vi capsular polysacch aride vac 01/02/17 Given Ambulat ory Pharmac y hepatitis B adult vaccine 2016 [id number] GlaxoSmithKli ne complet ed hepatitis B adult vaccine 12/06/16 Given Ambulat ory Pharmac y poliovirus vaccine, inactivated 2016 [id number] 10 sanofi pasteur complet ed polioviru s vaccine, inactivat ed 10/21/16 Given Ambulat ory Pharmac y tetanus, diphtheria, acellular pertu is 2016 [id number] GlaxoSmithKli ne complet ed tetanus, diphtheri a, acellular pertussis 10/21/16 Given Ambulat ory Pharmac y meningococcal A,C,Y,W-135 (MCV4P) 2016 [id number] 114 sanofi pasteur complet ed meningoco ccal A,C,Y,W-1 35 (MCV4P) 10/21/16 Given Ambulat ory Pharmac y adenovirus vaccine, live 2016 [id number] 143 Teva [employer] ls complet ed [...] N [facility] Cottle Absolute 0.51 10^3/u L 0.30 - 0.42324 12/02 N [facility]110A[facility] Imm. Granulocyte % 0.1 % 0.0 - 1.5 12/02 N [facility] Imm. Granulocyte Absolute 0.0 10^3/u L 0.0 - 0.2103 12/02 N [facility] Baso Absolute 0.04 10^3/u L 0.01 - 0.17378 12/02 N [facility] Eos Absolute 0.88 10^3/u L 0.04 - 0.76318 12/02 H [facility] Neutro Absolute 3.01 10^3/u L 1.78 - 5.02770 12/02 N [facility] Basophil % Auto 0.6 % 0.2 - 1.2 12/02 N [facility]110A[facility] Lymph Absolute 2.76 10^3/u L 1.32 - 3.66554 12/02 N [facility] [...] Hematology WBC 7.21 10^3/u L 4.23 - 9.54001 12/02 N [facility]110A[facility] MPV 10.3 fL 9.4 - 12.4 12/02 N [facility]110A[facility] MCV 87.6 fL 79.0 - 92.2 12/02 N [facility] RBC 4.43 10^6/u L 4.63 - 6.26138 12/02 L [facility]110A[facility] Platelets 323 10^3/u L 163 - 488817 12/02 N [facility]110A[facility] [...] mg/dL 1.70 - 2.60 12/02 N [facility]110A[facility] eGFR CKD EPI 86 [...] Severe decrease <15 G5 Kidney failure [facility] POC Glucose 81 mg/dL 74 - 118 12/02 N [facility] Vital Signs Combined list of inpatient [...] up to thelast 18 months, not all [place] non-surgical procedures are included; 2) All procedures [...] of Defense and Veterans Affairs (VA).VA Functional Harmon Measurement (FIM) Scale: 1 = Total Assistance (Subject = 0% +), 2 = Maximal Assistance (Subject = 25% +), 3 = Moderate Assistance (Subject = 50% +), 4 = Minimal Assistance (Subject = 75% +), 5 = Supervision, 6 = Modified Harmon (Device), 7 = Complete Harmon (Timely, Safely). Assessment Date/Time Source Assessment Type Assessment Skill Assessment Score Assessment Details No data available for this section
[2024-09-11 18:33] VITALS: BP 133/90; PULSE 50; RESP 16; TEMP 36.6; O2SAT 100
== END 2024-09-11 18:35 | disposition home or self-care (01) ==
PROVIDERS: Emergency Provider Emergency Medicine
DX: S46.912A Strain of unspecified muscle, fascia and tendon at shoulder and upper arm level, left arm, initial encounter (principal); X58.XXXA Exposure to other specified factors, initial encounter
CPT/HCPCS: 71046; 72072; 96372; 99284; A9270; J1885